=== PATIENT | male | born 2000 | race Caucasian/White ===

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

== ENCOUNTER 2020-09-25 10:39 | Emergency (ER) | payer BC, OTHER ==
[~2020-09-25] VITALS: Ht 188 cm; Wt 143.9 kg
[~2020-09-25 10:39] MED LIST changes: -DEXMEDETOMIDINE HCL 2 ML ONE; -FENTANYL CITRATE/PF 100MCG/2 ML INJ ONE; -HYOSCYAMINE 0.125 MG TAB ONE; -KETAMINE HCL INJ 50 MG/ML 10 ML VIAL ONE; -MIDAZOLAM HCL 2 MG/2 ML VIAL ONE; -PROPOFOL IV EMULSION 10 MG/ML 50 ML VIAL ONE
[2020-09-25] MEDS ORDERED: PROTONIX20 MG PO (11:22)
[2020-09-25] MEDS ORDERED: IOPAMIDOL 370 MG/ML 200 ML INFUS..BTL INJ ONE (11:29)
[2020-09-25] MEDS ORDERED: SODIUM CHLORIDE 0.9% 50ML 0 ML ONE (11:30)
[2020-09-25] MEDS ORDERED: DIATRIZOATE MEGL/DIATRIZOA SOD 30 ML BTL PO ONE (12:04)
[2020-09-25] MEDS ORDERED: CLEOCIN HCL300 MG PO (12:51)
[2020-09-25] MEDS ORDERED: PROCTOFOAM-HC F10 GM TOP (15:09)
[2020-09-25 15:40] VITALS: BP 155/85
== END 2020-09-25 15:30 | disposition home or self-care (01) ==
LOC: FSED 10:52
DX: K62.5 Hemorrhage of anus and rectum (principal); R10.11 Right upper quadrant pain; K76.0 Fatty (change of) liver, not elsewhere classified; R74.8 Abnormal levels of other serum enzymes; K21.9 Gastro-esophageal reflux disease without esophagitis; E66.01 Morbid (severe) obesity due to excess calories
CPT/HCPCS: 74176; 80053; 81003; 82270; 85025; 99284; Q9967